=== PATIENT | female | born 1970 | race Hispanic/Latino ===

== ENCOUNTER → 2017-10-06 | Day surgery (SDC) | payer OTHER ==
[~2017-10-06] VITALS: Ht 170.2 cm; Wt 108.9 kg
[~2017-10-06] MED LIST: PROAIR HFA8.5 GM INH
--- NOTE | 2017-10-06 16:15 | Operative Report ---
Operative/Inv Procedure Report Surgery Date: 10/06/17 Name of Procedure: urethral sling, cystoscopy, ureteroscopy with retrograde pyelogram and stent placement Pre-Operative Diagnosis: stress incontinence, 4mm renal stone Post-Operative Diagnosis: same Estimated Blood Loss: 50ml to 100ml Surgeon/Maintenance Job Titles: Rhona Thomas MD Anesthesia: laryngeal mask airway Implants: vaginal mesh Complications: unable to place minisling due to anatomy challenges and sling material Condition: stable Operative Indication: stress incontinence, right renal stone Operative/Procedure Note Note: 47yo female with a history of stress incontinence and more recently right renal colic. She has been bothered by NATALIE for some time. She was eager to have her stress incontinence treated and also her stone. She was consented in the holding area and all questions answered. The risks, benefits and alternatives were reviewed with her again as it was in the office. She was taken to the operating room placed on the operating table in the supine position. Timeout was performed. IV antibiotics were infused. IV sedation was started and she was then placed in the dorsal lithotomy position. She was prepped and draped in the standard sterile fashion. Cystoscopy was performed and the bladder was globally inspected. The right ureteral orifice was cannulated with a sensor guidewire. This was followed by dual-lumen catheter to placed a superstiff wire. The digital flexible ureteroscope was then placed into the kidney after a ureteral access sheath was placed over the Super Stiff wire. The kidney was examined sequentially from the upper middle and lower poles. No visible stones were appreciated other than one in the lower pole that was within the papillary. It was not accessible to laser. As result the stone was not treated. Retropyelogram was performed to delineate the anatomy of the kidney and there was no filling defect and each calyces had been entered. The remaining safety wire was then used to place a 6 x 24 cm stent. When in the bladder a second ureteral orifice was appreciated with ureteral efflux medial to the previously examined ureter which was located more laterally. Retropyelogram was performed through a 6 Italian tiger tail catheter. This was a small upper calyx that was not dilated with the straight ureter. As result of ureteroscopy was not passed up this ureter. On the CAT scan the stone was clearly in the lower pole. It was a duplicated system but without any evidence of reflux into the system or any stone. The next portion of the case with the sling was then started. A Edge catheter was placed and the bladder was emptied. The Edge was placed in the patient's abdomen. 1% lidocaine was infiltrated into the anterior vaginal wall beneath the urethra. An incision was made taking care not to injure the urethra. Vaginal flaps are created on the patient's left and right side. These were carried to the retropubic space. The Altis sling kit was then opened. Trochars provided were used to place the sling on the patient's left side followed by the right side but the sling was not sitting appropriately bc the mesh was too close and unable to be tightened. This occurred twice with two separate Altis sling kits. As a result, a Gynecare TOT sling was placed. Groin incision sites were marked out at the level of the clitoris and below where the adductor longus muscle inserts. The trocars provided by the TOT kit was used with the accompanying butterfly device and the trocars were passed without issue and out the groin incision sites on the right and left side. The trocar plastic covering was grasped with a candice clamp and the mesh . The mesh was tightened with a #11 hegar dilator and seth clamp grasping a portion of the sling. Once the mesh was tightened the hegar dilator and seth clamp were removed. Area was copiously irrigated with bacitracin irrigation. The sling was in a nice horizonatal orientation. The incision was closed with 3-0 Vicryl running locking every third suture. There is no mesh in the vaginal fornices. The groin incisions were closed with Dermabond. A cystoscopy was performed and the bladder was globally inspected. There is no mesh in the bladder or the urethra or the vaginal fornices. Sponge and needle count were correct at the end of the case. Patient tolerated procedure well. Findings: Right renal stone in the lower pole within the papilla which was inaccessible. Double ureters with separate calyces. No dilatation of the upper pole moiety. Only the lower portion of the kidney was stented. No mesh in the bladder urethra or the vaginal fornices. Discharge Disposition: PACU
--- NOTE | 2017-10-07 15:29 | RADIOLOGY REPORT ---
EXAMINATION: CR ABDOMEN/INTRAOPERATIVE FLUOROSCOPY CLINICAL INDICATION: Right ureteroscopy with stent placement. COMPARISON: None TECHNIQUE/FINDINGS: Fluoroscopic equipment was dedicated to the operating room for the performance of an intraoperative procedure. Several (6) spot films were acquired and are archived in PACS. Please refer to operative notes for procedural detail. FLUOROSCOPY TIME: 30 seconds. IMPRESSION: Administrative dictation for intraoperative fluoroscopy and image archiving in PACS. Please refer to operative notes for details.
== END ==
LOC: STS 04:13
DX: N39.3 Stress incontinence (female) (male) (principal); N20.0 Calculus of kidney; Q62.5 Duplication of ureter; J45.909 Unspecified asthma, uncomplicated; F17.210 Nicotine dependence, cigarettes, uncomplicated
CPT/HCPCS: 74018; C1771; C2617; J0690; J1630; J1885; J2250; J2405